=== PATIENT | male | born 1965 | race Caucasian/White ===

== ENCOUNTER 2021-03-17 10:05 | Emergency (ER) | payer OTHER ==
[~2021-03-17] VITALS: Ht 175.2 cm; Wt 81.6 kg
[2021-03-17 11:22] LABS: BASO # 0.1 10*3/uL (0.0-0.1); BASO % 0.4 % (0.0-1.0); EOS # 0.4 10*3/uL (0.0-0.4); EOS % 3.6 % (1.0-4.0); HEMATOCRIT 38.7 % (42.0-52.0); LYMPH # 1.1 10*3/uL (1.3-4.4); LYMPH % 8.9 % (27.0-41.0); MEAN CELL VOLUME 84.9 fl (80.0-94.0); MEAN CORPUSCULAR HGB CONC 31.8 g/dl (33.0-37.0); MEAN PLATELET VOLUME 10.1 fl (9.6-12.3); MONO # 0.8 10*3/uL (0.1-1.0); MONO % 6.8 % (3.0-9.0); NEUT # 9.5 10*3/uL (2.3-7.9); PLATELET COUNT AUTOMATED 271 10*3/uL (130-400); RED BLOOD COUNT 4.56 10*6/uL (4.50-5.90); RED CELL DISTRI WIDTH 13.6 % (0-14.5); WHITE BLOOD COUNT 11.8 10*3/uL (4.8-10.8)
[2021-03-17 11:36] LABS: ALKALINE PHOSPHATASE 94 U/L (45-117); BUN 9 mg/dl (7-24); CHLORIDE 104 mmol/L (98-107); CREATININE 0.73 mg/dL (0.70-1.30); POTASSIUM 3.3 mmol/L (3.5-5.1); SGOT/AST 10 IU/L (3-35); SGPT/ALT 20 U/L (12-78); SODIUM 137 mmol/L (136-145); TOTAL PROTEIN 6.4 gm/dL (6.4-8.2); URIC ACID 5.6 mg/dL (3.5-7.2)
[2021-03-17] MEDS ORDERED: INDOMETHACIN ER75 M1 PO (12:29)
[2021-03-17] MEDS ORDERED: PREDNISONE20 M1 PO (12:29)
[2021-03-17] MEDS ORDERED: HYDROCODONE-AC1 EAC1 PO (13:02)
== END 2021-03-17 12:41 | disposition home or self-care (01) ==
LOC: ED 10:05
PROVIDERS: Physician Assistant
DX: M10.021 Idiopathic gout, right elbow (principal)

== ENCOUNTER → 2021-12-03 | Outpatient (CLI) | payer OTHER ==
[~2021-12-03] MED LIST: HYDROCODONE-AC1 EAC1 PO; INDOMETHACIN ER75 M1 PO; PREDNISONE20 M1 PO
[2021-12-03 12:18] LABS: URIC ACID 6.7 mg/dL (3.5-7.2)
[2021-12-04 05:05] LABS: RHEUMATOID FACTOR <10.0 IU/mL (<14.0)
[2021-12-04 08:06] LABS: HEP B CORE AB, IGM Negative (Negative); HEPATITIS B SURFACE AG Negative (Negative); HEPATITIS C VIRUS ANTIBODY 0.1 s/co (0.0-0.9)
[2021-12-05 00:04] LABS: DILUTE PROTHROMBIN TIME 43.2 sec (0.0-47.6); DPT CONFIRM RATIO 1.22 Ratio (0.00-1.34); LUPUS DRVVT 38.2 sec (0.0-47.0); LUPUS REFLEX INTERPRETATION Comment: (.); PTT-LA 35.1 sec (0.0-51.9); THROMBIN TIME 27.1 sec (0.0-23.0)
== END | disposition home or self-care (01) ==
LOC: LAB 11:26
PROVIDERS: ATTEND Family Medicine
DX: M25.50 Pain in unspecified joint (principal)